=== PATIENT | female | born 1945 | race Caucasian/White ===

== ENCOUNTER 2017-02-13 21:41 | Emergency (ER) | payer MEDICARE, BC ==
[2017-02-13 22:15] VITALS: BP 112/56
[2017-02-13] MEDS ORDERED: Albuterol/Ipratropium 3.0-0.5 MG/3 ML Neb Soln NEB ONE (22:31)
[2017-02-13] MEDS ORDERED: Sodium Chloride 0.9% 1,000 ML IV SCH (22:45)
[2017-02-13] MEDS ORDERED: Albuterol 0.083% 2.5 MG/3 ML Neb Soln NEB ONE (23:29)
[2017-02-14] MEDS ORDERED: methylPREDNISolone Sodium Succinate 125 MG/2 ML SDV IM ONE (00:08)
--- NOTE | 2017-02-14 00:29 | EDM.PDOC ---
ED HPI GENERAL MEDICAL PROBLEM - General Chief Complaint: Respiratory Problem Stated Complaint: TROUBLE BREATHING Time Seen by Provider: 02/13/17 22:24 Source of Information: Reports: Patient History Limitations: Reports: No Limitations - History of Present Illness INITIAL COMMENTS - FREE TEXT/NARRATIVE: History of present illness: [71-year-old female presenting with cough and shortness of breath. She has had subjective fever but is not sure that she's had a fever. She quit smoking about a month ago and was a heavy smoker. She has a long complicated history including bilateral breast cancer with bilateral mastectomies. She is also gastric bypass patient. She is from [place] but in the summertime she stays in [place]. She does have a nebulization machine in [place] that she didn' t take with her here. She does have an handheld inhaler that she's been using but it has not relieved her shortness of breath.] Review of systems: As per history of present illness and below otherwise all systems reviewed and negative. Past medical history: As per history of present illness and as reviewed below otherwise noncontributory. Surgical history: As per history of present illness and as reviewed below otherwise noncontributory. Social history: No reported history of drug or alcohol abuse. Family history: As per history of present illness and as reviewed below otherwise noncontributory. Physical exam: HEENT: Atraumatic, normocephalic, pupils reactive, negative for conjunctival pallor or scleral icterus, mucous membranes moist, throat clear, neck supple, nontender, trachea midline. Lungs: Diffuse expiratory wheezing throughout but cleared with DuoNeb and albuterol treatment. Heart: S1S2, regular, negative for clicks, rubs, or JVD. Abdomen: Soft, nondistended, nontender. Negative for masses or hepatosplenomegaly. Negative for costovertebral tenderness. Pelvis: Stable nontender. Genitourinary: Deferred. Rectal: Deferred. Extremities: Atraumatic, negative for cords or calf pain. Neurovascular unremarkable. Neuro: Awake, alert, oriented. Cranial nerves II through XII unremarkable. Cerebellum unremarkable. Motor and sensory unremarkable throughout. Exam nonfocal. Diagnostics: [CBC complete metabolic panel chest x-ray were done along with rapid strep and influenza a and B.] Therapeutics: [Patient received DuoNeb and albuterol IV fluids and Solu-Medrol and improved with these treatments.] Impression: [Bronchitis] Plan: [She is provided with Zithromax and a tapering dose of prednisone. She is also to get her nebulization machine from [place] and use that while she is staying in [place]. Follow-up in the clinic or ER if not improving] Definitive disposition and diagnosis as appropriate pending reevaluation and review of above. - Related Data Allergies Allergy/AdvReac Type Severity Reaction Status Date / Time No Known Allergies Allergy Verified 02/13/17 22:52 Home Meds: Home Meds Aspirin [Halfprin] 81 mg PO DAILY 04/26/16 [History] Calcium Citrate/Vitamin D3 [Calcium Citrate + D] 1 each PO DAILY 04/26/16 [ History] Cholecalciferol (Vitamin D3) [D-2000] 2,000 unit PO DAILY 04/26/16 [History] Cyanocobalamin/Folic Acid [B-12 1,000 Mcg Sub Tablet] 1,000 mcg SL DAILY [History] Ferrous Sulfate 325 mg PO BID 04/26/16 [History] LORazepam [LORazepam] 1 mg PO DAILY 04/26/16 [History] Letrozole [Letrozole] 2.5 mg PO DAILY 04/26/16 [History] Magnesium Oxide [Magnesium] 500 mg PO DAILY 04/26/16 [History] PARoxetine HCl [Paroxetine HCl] 30 mg PO DAILY 04/26/16 [History] rOPINIRole HCl [Ropinirole HCl] 2 mg PO BEDTIME 04/26/16 [History] Albuterol [Ventolin HFA] 2 puff INH Q6H PRN 02/13/17 [History] Multivitamin [Multi-Vitamin Daily] 1 tab PO DAILY 02/13/17 [History] Past Medical History HEENT History: Reports: Allergic Rhinitis Cardiovascular History: Reports: High Cholesterol Respiratory History: Reports: Bronchitis, Recurrent 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: Reports: Polycystic Ovaries, Neurological History: Reports: Concussion, Other (See Below) Other Neuro History: cataplexy narcolepsy Psychiatric History: Reports: Anxiety Endocrine/Metabolic History: Reports: Diabetes, Type II, Other (See Below) Other Endocrine/Metabolic History: graves disease Hematologic History: Reports: Anemia Oncologic (Cancer) History: Reports: Breast - Past Surgical History HEENT Surgical History: Reports: Cataract Surgery GI Surgical History: Reports: Appendectomy, Bariatric Procedure Female Surgical History: Reports: Mastectomy Musculoskeletal Surgical History: Reports: Knee Replacement, Other (See Below) Other Musculoskeletal Surgeries/Procedures:: 2 knee repalcements Oncologic Surgical History: Reports: Mastectomy Social & Family History - Tobacco Use Smoking Status *Q: Never Smoker Packs/Tins Daily: 0.5 - Caffeine Use Caffeine Use: Reports: Coffee - Recreational Drug Use Recreational Drug Use: No ED ROS GENERAL - Review of Systems Review Of Systems: ROS reveals no pertinent complaints other than HPI. ED EXAM, GENERAL - Physical Exam Exam: See Below Course - Vital Signs Last Recorded V/S: Last Vital Signs Temp 37 C 02/13/17 22:13 Pulse 79 02/13/17 22:13 Resp 20 02/13/17 22:13 BP 112/56 L 02/13/17 22:13 Pulse Ox 91 L 02/13/17 23:48 - Orders/Labs/Meds Orders: Active Orders 24 hr Category Date Time Status RT Aerosol Therapy [RC] ASDIRECTED Care 02/13/17 22:31 Active RT Aerosol Therapy [RC] ASDIRECTED Care 02/13/17 23:29 Active Chest 2V [CR] Stat Exams 02/13/17 22:29 Taken CULTURE RESPIRATORY + SMEAR [] Stat Lab 02/13/17 23:50 Received CULTURE STREP A CONFIRMATION [RM] Stat Lab 02/13/17 22:54 Results STREP SCRN A RAPID W CULT CONF [RM] Stat Lab 02/13/17 22:54 Results UA W/MICROSCOPIC [URIN] Stat Lab 02/13/17 22:29 Uncollected Heparin Sodium [Heparin Lock Flush 100 Units/ML] Med 02/14/17 00:24 Ordered 500 units FLUSH ASDIRECTED PRN Sodium Chloride 0.9% [Normal Saline] 1,000 ml Med 02/13/17 22:45 Active IV ASDIRECTED Medication Orders Heparin Sodium (Porcine) (Heparin Lock Flush 100 Units/Ml) 500 units FLUSH ASDIRECTED PRN PRN Reason: IV Use Sodium Chloride (Normal Saline) 1,000 mls @ 300 mls/hr IV ASDIRECTED MIRZA Last Admin: 02/13/17 23:42 Dose: 300 mls/hr Labs: Laboratory Tests 02/13/17 02/13/17 02/13/17 Range/Units 22:29 22:29 22:30 WBC 9.2 (4.5-11.0) K/uL RBC 4.15 (3.30-5.50) M/uL Hgb 12.2 (12.0-15.0) g/dL Hct 37.7 (36.0-48.0) % MCV 91 (80-98) fL MCH 29 (27-31) pg MCHC 32 (32-36) % Plt Count 161 (150-400) K/uL Neut % (Auto) 77 H (36-66) % Lymph % (Auto) 12 L (24-44) % [place] % (Auto) 11 H (2-6) % Eos % (Auto) 1 L (2-4) % Baso % (Auto) 0 (0-1) % Sodium 140 (140-148) mmol/L Potassium 3.7 (3.6-5.2) mmol/L Chloride 105 (100-108) mmol/L Carbon Dioxide 27 (21-32) mmol/L Anion Gap 8.3 (5.0-14.0) mmol/L BUN 10 (7-18) mg/dL Creatinine 0.6 (0.6-1.0) mg/dL Est Cr Clr Drug Dosing TNP Estimated GFR (MDRD) > 60 (>60) Glucose 108 H (74-106) mg/dL Lactic Acid 0.8 (0.4-2.0) mmol/L Calcium 8.7 (8.5-10.1) mg/dL Total Bilirubin 0.5 (0.2-1.0) mg/dL AST 43 H (15-37) U/L ALT 32 (12-78) U/L Alkaline Phosphatase 128 H (46-116) U/L Total Protein 6.7 (6.4-8.2) g/dL Albumin 3.2 L (3.4-5.0) g/dL Globulin 3.5 (2.3-3.5) g/dL Albumin/Globulin Ratio 0.9 L (1.2-2.2) Meds: Medications Generic Name Dose Route Start Last Admin Trade Name Freq PRN Reason Stop Dose Admin Heparin Sodium (Porcine) 500 units 02/14/17 00:24 Heparin Lock Flush 100 Units/Ml FLUSH ASDIRECTED PRN IV Use Sodium Chloride 1,000 mls @ 300 mls/hr 02/13/17 22:45 02/13/17 23:42 Normal Saline IV 300 mls/hr ASDIRECTED MIRZA Administration Discontinued Medications Generic Name Dose Route Start Last Admin Trade Name Jeromy PRN Reason Stop Dose Admin Albuterol 2.5 mg 02/13/17 23:29 02/13/17 23:48 Proventil Neb Soln NEB 02/13/17 23:30 2.5 mg ONETIME ONE Administration Albuterol/Ipratropium 3 ml 02/13/17 22:31 02/13/17 23:02 Duoneb 3.0-0.5 Mg/3 Ml NEB 02/13/17 22:32 3 ml ONETIME ONE Administration Methylprednisolone Sodium Succinate 125 mg 02/14/17 00:08 02/14/17 00:17 Solu-Medrol IM 02/14/17 00:09 125 mg ONETIME ONE Administration Departure - Departure Time of Disposition: 00:31 Disposition: Home, Self-Care 01 Condition: Good Clinical Impression: Bronchitis, Acute asthma - Discharge Information Forms: ED Department Discharge Additional Instructions: Please remember to get your nebulization machine from [place] and use that while staying in [place] as needed. If you develop significant shortness of breath you have to return to the ER clinic for evaluation and treatment but hopefully with what we have done today that will not happen or be needed. - My Orders Last 24 Hours: My Active Orders 02/13/17 22:29 Chest 2V [CR] Stat UA W/MICROSCOPIC [URIN] Stat 02/13/17 22:31 RT Aerosol Therapy [RC] ASDIRECTED 02/13/17 22:45 Sodium Chloride 0.9% [Normal Saline] 1,000 ml IV ASDIRECTED 02/13/17 22:54 CULTURE STREP A CONFIRMATION [RM] Stat STREP SCRN A RAPID W CULT CONF [RM] Stat 02/13/17 23:29 RT Aerosol Therapy [RC] ASDIRECTED 02/13/17 23:50 CULTURE RESPIRATORY + SMEAR [RM] Stat 02/14/17 00:24 Heparin Sodium [Heparin Lock Flush 100 Units/ML] 500 units FLUSH ASDIRECTED PRN - Assessment/Plan Last 24 Hours: My Active Orders 02/13/17 22:29 Chest 2V [CR] Stat UA W/MICROSCOPIC [URIN] Stat 02/13/17 22:31 RT Aerosol Therapy [RC] ASDIRECTED 02/13/17 22:45 Sodium Chloride 0.9% [Normal Saline] 1,000 ml IV ASDIRECTED 02/13/17 22:54 CULTURE STREP A CONFIRMATION [] Stat STREP SCRN A RAPID W CULT CONF [RM] Stat 02/13/17 23:29 RT Aerosol Therapy [RC] ASDIRECTED 02/13/17 23:50 CULTURE RESPIRATORY + SMEAR [] Stat 02/14/17 00:24 Heparin Sodium [Heparin Lock Flush 100 Units/ML] 500 units FLUSH ASDIRECTED PRN
--- NOTE | 2017-02-16 08:20 | CR ---
Chest 2V HISTORY: cough COMPARISON: None FINDINGS: Lungs appear clear and normally aerated. Cardiomediastinal silhouette is within normal limits. No va scular redistribution or pleural fluid can be seen. Central venous Port-A-Cath is noted. The tip ove rlies the right atrium near the junction with the SVC. There is mild atherosclerotic calcification o f the aortic arch. Old postoperative changes right chest are noted. IMPRESSION: Old postoperative changes. No acute chest abnormality identified.
== END 2017-02-14 00:45 | disposition home or self-care (01) ==
LOC: JP.ED 21:41
DX: J40 Bronchitis, not specified as acute or chronic (principal); E78.00 Pure hypercholesterolemia, unspecified; F41.9 Anxiety disorder, unspecified; E11.9 Type 2 diabetes mellitus without complications; D64.9 Anemia, unspecified; Z96.659 Presence of unspecified artificial knee joint; Z98.890 Other specified postprocedural states; Z90.49 Acquired absence of other specified parts of digestive tract; Z79.82 Long term (current) use of aspirin; Z79.899 Other long term (current) drug therapy; Z98.84 Bariatric surgery status
CPT/HCPCS: 36415; 71020; 80053; 83605; 85025; 87070; 87077; 87081; 87205; 87430; 87804; 94640; 96360; 96361; 96372; 99285; C1751; J1642; J2930; J7040; J7620; 99284

== ENCOUNTER 2021-02-09 22:14 | Emergency (ER) | payer MEDICAID, MEDICARE, OTHER ==
[2021-02-09 22:37] VITALS: BP 105/59; PULSE 61
--- NOTE | 2021-02-09 23:00 | EDM.PDOC ---
ED HPI GENERAL MEDICAL PROBLEM - General Chief Complaint: Headache Stated Complaint: FELL FROM DECK/SEISURE Time Seen by Provider: 02/09/21 22:41 Source of Information: Reports: Patient, Family History Limitations: Reports: No Limitations - History of Present Illness INITIAL COMMENTS - FREE TEXT/NARRATIVE: Nina is a 75-year-old female presenting to the ED for evaluation of head injury that occurred earlier today when she fell off of her deck landing on her head hitting the stump. Patient has a history significant for narcolepsy with cataplexy and forgot to take her morning medications. Today she was out on her front deck trying to get her son's attention to shoot a rabbit in their garden when she had an episode of narcolepsy and went over the railing of the deck landing on her head and hitting a stump. When she has these episodes she has intact hearing and she heard the family come run over to check on her but she could not move or open her eyes. She initially felt fine when she regained consciousness but over the course of the evening started develop an increasing headache and some nausea prompting him to bring her in for evaluation. She denies any change of vision, funny taste in the mouth or funny smells, difficulty with swallowing or breathing, chest pain or back pain, and neck pain. She states that over the last 3 months her narcolepsy has become more significant to the point now where she is given up her car and driving. She has been on medication to control it, however, it appears to be less effective. She has not followed up with her neurologist concerning her narcolepsy and cataplexy. She does reside in a trailer on her son's property. Her son accompanies her to the ER today. headache Pain Score (Numeric/FACES): 6 - Related Data Allergies Allergy/AdvReac Type Severity Reaction Status Date / Time No Known Allergies Allergy Verified 02/09/21 22:49 Home Meds: Home Meds Aspirin [Halfprin] 81 mg PO DAILY 04/26/16 [History] Calcium Citrate/Vitamin D3 [Calcium Citrate + D] 1 each PO DAILY 04/26/16 [History] Cholecalciferol (Vitamin D3) [D-2000] 2,000 unit PO DAILY 04/26/16 [History] Cyanocobalamin/Folic Acid [B-12 1,000 Mcg Sub Tablet] 1,000 mcg SL DAILY 04/26/16 [History] Ferrous Sulfate 325 mg PO BID 04/26/16 [History] LORazepam 1 mg PO DAILY 04/26/16 [History] Letrozole 2.5 mg PO DAILY 04/26/16 [History] Magnesium Oxide [Magnesium] 500 mg PO DAILY 04/26/16 [History] PARoxetine HCl [Paroxetine HCl] 100 mg PO DAILY 04/26/16 [History] rOPINIRole HCl [Ropinirole HCl] 2 mg PO BEDTIME 04/26/16 [History] Albuterol [Ventolin HFA] 2 puff INH Q6H PRN 02/13/17 [History] Multivitamin [Multi-Vitamin Daily] 1 tab PO DAILY 02/13/17 [History] Past Medical History HEENT History: Reports: Allergic Rhinitis Cardiovascular History: Reports: High Cholesterol Respiratory History: Reports: Bronchitis, Recurrent 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 UP PERSON History: Reports: Polycystic Ovaries, Neurological History: Reports: Concussion, Other (See Below) Other Neuro History: cataplexy narcolepsy Psychiatric History: Reports: Anxiety Endocrine/Metabolic History: Reports: Diabetes, Type II, Other (See Below) Other Endocrine/Metabolic History: graves disease Hematologic History: Reports: Anemia Oncologic (Cancer) History: Reports: Breast - Past Surgical History HEENT Surgical History: Reports: Cataract Surgery GI Surgical History: Reports: Appendectomy, Bariatric Procedure Female Surgical History: Reports: Mastectomy Musculoskeletal Surgical History: Reports: Knee Replacement, Other (See Below) Other Musculoskeletal Surgeries/Procedures:: 2 knee repalcements Oncologic Surgical History: Reports: Mastectomy Social & Family History - Caffeine Use Caffeine Use: Reports: Coffee ED ROS GENERAL - Review of Systems Review Of Systems: See Below Constitutional: Reports: Other (Narcolepsy with cataplexy) HEENT: Reports: Other (Pain over the occiput of the head) Respiratory: Reports: No Symptoms Cardiovascular: Reports: No Symptoms Endocrine: Reports: No Symptoms GI/Abdominal: Reports: Nausea : Reports: No Symptoms Musculoskeletal: Reports: No Symptoms Skin: Reports: No Symptoms Neurological: Reports: Headache, Other (History of narcolepsy and cataplexy) Psychiatric: Reports: No Symptoms Hematologic/Lymphatic: Reports: No Symptoms Immunologic: Reports: No Symptoms ED EXAM, HEAD INJURY - Physical Exam Exam: See Below Exam Limited By: No Limitations General Appearance: Alert, No Apparent Distress Head: Normocephalic, Scalp Tenderness (Tenderness to palpation over the occiput) Nexus Criteria: No: Posterior, Midline Cervical Tenderness, Evidence of Intoxication, Altered Level of Consciousness, Focal Neurological Deficit, Painful Distraction Injuries Eyes: Bilateral Eye: EOMI, PERRL Throat/Mouth: Normal Inspection, Normal Lips, Normal Oropharynx, Normal Voice, No Airway Compromise Neck: Non-Tender, Full Range of Motion Respiratory: No Respiratory Distress, Lungs Clear, Normal Breath Sounds Cardiovascular: Normal Peripheral Pulses, Regular Rate, Rhythm, No Murmur GI/Abdominal Exam: Normal Bowel Sounds, Soft, Non-Tender Back Exam: Normal Inspection, Full Range of Motion Extremities: Normal Inspection, Normal Range of Motion, Normal Capillary Refill 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 As Tested, No Motor/Sensory Deficits, Alert, Normal Mood/Affect, Oriented x 3 - Gray Coma Score Best Eye Response (Gray): (4) Open Spontaneously Best Verbal Response (Gray): (5) Oriented Best Motor Response (Gray): (6) Obeys Commands Luzma Total: 15 Course - Vital Signs Last Recorded V/S: Last Vital Signs Temp 36.3 C 02/09/21 22:54 Pulse 61 02/09/21 22:54 Resp 16 02/09/21 22:54 BP 105/59 L 02/09/21 22:54 Pulse Ox 95 02/09/21 22:54 - Orders/Labs/Meds Labs: Laboratory Tests 02/09/21 02/09/21 Range/Units 23:00 23:00 WBC 8.2 (4.5-11.0) K/uL RBC 4.16 (3.30-5.50) M/uL Hgb 12.4 (12.0-15.0) g/dL Hct 37.3 (36.0-48.0) % MCV 90 (80-98) fL MCH 30 (27-31) pg MCHC 33 (32-36) % Plt Count 224 (150-400) K/uL Neut % (Auto) 70.0 H (36-66) % Lymph % (Auto) 17.5 L (24-44) % [place] % (Auto) 10.5 H (2-6) % Eos % (Auto) 1.8 L (2-4) % Baso % (Auto) 0.2 (0-1) % Sodium 144 (140-148) mmol/L Potassium 4.4 (3.6-5.2) mmol/L Chloride 108 (100-108) mmol/L Carbon Dioxide 26 (21-32) mmol/L Anion Gap 9.9 (5.0-14.0) mmol/L BUN 15 (7-18) mg/dL Creatinine 0.7 (0.6-1.0) mg/dL Est Cr Clr Drug Dosing 66.01 mL/min Estimated GFR (MDRD) > 60 (>60) Glucose 101 (74-106) mg/dL Calcium 8.8 (8.5-10.1) mg/dL Magnesium 1.8 (1.8-2.4) mg/dL Total Bilirubin 0.3 (0.2-1.0) mg/dL AST 27 (15-37) U/L ALT 49 (12-78) U/L Alkaline Phosphatase 175 H (46-116) U/L Total Protein 6.6 (6.4-8.2) g/dL Albumin 3.3 L (3.4-5.0) g/dL Globulin 3.3 (2.3-3.5) g/dL Albumin/Globulin Ratio 1.0 L (1.2-2.2) Meds: Medications Discontinued Medications Generic Name Dose Route Start Last Admin Trade Name Freq PRN Reason Stop Dose Admin Ketorolac Tromethamine 15 mg 02/10/21 00:02 02/10/21 00:19 Ketorolac 30 Mg/Ml Sdv IVPUSH 02/10/21 00:03 Not Given ONETIME ONE Ketorolac Tromethamine 15 mg 02/10/21 00:17 02/10/21 00:19 Ketorolac 30 Mg/Ml Sdv IM 02/10/21 00:18 15 mg ONETIME ONE Administration - Radiology Interpretation Free Text/Narrative:: I reviewed the images of the CT of the head without contrast as well as the r eport. There is no acute intracranial abnormalities. There is no hemorrhage, mass-effect or midline shift. The patient does have diffuse white matter changes consistent with microvascular disease. She also has generalized atrophy. There was 1 area demonstrating a calcified hemangioma. - Re-Assessments/Exams Free Text/Narrative Re-Assessment/Exam: 02/10/21 00:19 I reviewed the patient's labs and x-ray. There is no acute injury seen on the CT of the head without contrast. Patient was given Toradol 15 mg IM for her headache. She likely has a mild concussion from the fall. There were no significant electrolyte abnormalities. This is likely occurring because of the worsening narcolepsy with cataplexy. I encouraged her to follow-up with a neurologist for reevaluation and management of her medications. At this time I believe she is suitable for discharge home in satisfactory condition. Indications return to the ED were discussed. Departure - Departure Time of Disposition: 00:30 Disposition: Home, Self-Care 01 Clinical Impression: Narcolepsy with cataplexy, Head injury, closed, with brief LOC Concussion Qualifiers: Encounter type: initial encounter Loss of consciousness presence/duration: with LOC of unspecified duration Qualified Code(s): S06.0X9A - Concussion with loss of consciousness of unspecified duration, initial encounter - Discharge Information Instructions: Concussion, Adult, [id number] Referrals: PCP,None [Primary Care Provider] - Forms: ED Department Discharge Care Plan Goals: I would recommend following up with your neurologist to discuss why your narcolepsy with cataplexy is worsening over the last 3 months. You may need to have your medications adjusted to reduce the recurrence of this. Your work-up today shows that you have a mild concussion. There was no significant injury no carlos on your CAT scan and your laboratory results were unremarkable. Sepsis Event Note (ED) - Evaluation Sepsis Screening Result: No Definite Risk - Focused Exam Vital Signs: Vital Signs Temp Pulse Resp BP Pulse Ox 02/09/21 22:54 36.3 C 61 16 105/59 L 95 02/09/21 22:35 36.3 C 61 16 105/59 L 95 - Problem List & Annotations (1) Concussion SNOMED Code(s): 245739917 Code(s): S06.0X9A - CONCUSSION W LOSS OF CONSCIOUSNESS OF UNSP DURATION, INIT Status: Acute Priority: High Current Visit: Yes Qualifiers: Encounter type: initial encounter Loss of consciousness presence/duration: with LOC of unspecified duration Qualified Code(s): S06.0X9A - Concussion with loss of consciousness of unspecified duration, initial encounter (2) Head injury, closed, with brief LOC SNOMED Code(s): 76797205, 25513905 Code(s): S06.9X9A - UNSP INTRACRANIAL INJURY W LOC OF UNSP DURATION, INIT Status: Acute Priority: High Current Visit: Yes (3) Narcolepsy with cataplexy Status: Chronic Priority: High Current Visit: Yes - Problem List Review Problem List Initiated/Reviewed/Updated: Yes
[2021-02-10] MEDS ORDERED: Ketorolac 30 MG/ML SDV IVPUSH ONE (00:02)
--- NOTE | 2021-02-10 00:06 | CRLCT ---
For Patients: As a result of the Century Cures Act, medical imaging exams and procedure reports are released immediately into your electronic medical record. You may view this report before your referring provider. If you have questions, please contact your health care provider. INDICATION: Head injury. Nausea and headache. COMPARISON: None. TECHNIQUE: Noncontrast CT head. FINDINGS: [id number] generalized volume loss. Low-attenuation change within the white matter consistent with chronic small vessel ischemic changes. No acute intracranial hemorrhage, acute infarct, focal edema, mass effect, or fracture. No midline shift. No abnormal ventricular dilatation. 9 mm calcified mass adjacent to the lateral left cerebellum (series 2, image 12) may represent a calcified meningioma. Normal calvarium and skull base. Visualized paranasal sinuses mastoid air cells are clear. Normal orbits bilaterally. IMPRESSION: 1. No acute intracranial abnormality. 2. [id number] generalized volume loss. Chronic deep white matter small vessel ischemic changes. Please note that all CT scans at this facility use dose modulation, iterative reconstruction, and/or weight-based dosing when appropriate to reduce radiation dose to as low as reasonably achievable. Dictated by Walter Razo MD @ 02/10/2021 12:04:[address] Walter Razo @ Feb 10 2021 12:04AM
[2021-02-10] MEDS ORDERED: Ketorolac 30 MG/ML SDV IM ONE (00:17)
== END 2021-02-10 00:54 | disposition home or self-care (01) ==
LOC: JP.ED 22:14
DX: S06.0X9A Concussion with loss of consciousness of unspecified duration, initial encounter (principal); G47.411 Narcolepsy with cataplexy; E11.9 Type 2 diabetes mellitus without complications; Z79.82 Long term (current) use of aspirin; Z79.899 Other long term (current) drug therapy; W17.4XXA Fall from dock, initial encounter
CPT/HCPCS: 36415; 70450; 80053; 83735; 85025; 96372; 99284; J1885

== ENCOUNTER 2021-07-12 18:24 | Emergency (ER) | payer MEDICARE ==
[2021-07-12] MEDS ORDERED: LORazepam 2 MG/ML SDV IVPUSH ONE ×2 (18:34→19:41)
--- NOTE | 2021-07-12 18:41 | EDM.PDOC ---
ED HPI GENERAL MEDICAL PROBLEM - General Stated Complaint: CHEST PAIN Time Seen by Provider: 07/12/21 18:29 Source of Information: Reports: Patient, Family History Limitations: Reports: No Limitations - History of Present Illness INITIAL COMMENTS - FREE TEXT/NARRATIVE: Nina is a 75-year-old female presenting to the ED with her family for evaluation of chest pain with pleurodynia. The patient received news today that her son had and has a history significant for anxiety. Since receiving the news she has been experiencing increasing central chest pain including dull pain and a component of sharp pain and twinges that seemed to be related to respiratory effort. She denies any nausea or vomiting. She is very upset. She is a smoker consuming 0.5 to 1 packs/day. She has a history significant for diabetes type 2, hyperlipidemia, obstructive sleep apnea, obesity, breast cancer status post bilateral mastectomies, a previous bariatric surgery and adjustment disorder with depression. Her medications were reviewed. She was seen on 07/09/2021 by her primary provider for a cough. She has recently undergone a CT of the chest as well as labs including a CBC, comprehensive metabolic panel, tick panel, and COVID-19 all of which were negative. Chest Pain Score (Numeric/FACES): 5 - Related Data Allergies Allergy/AdvReac Type Severity Reaction Status Date / Time No Known Allergies Allergy Verified 07/12/21 18:41 Home Meds: Home Meds Aspirin [Halfprin] 81 mg PO DAILY 04/26/16 [History] Calcium Citrate/Vitamin D3 [Calcium Citrate + D] 1 each PO DAILY 04/26/16 [History] Cholecalciferol (Vitamin D3) [D2000] 2,000 unit PO DAILY 04/26/16 [History] Cyanocobalamin/Folic Acid [B-12 1,000 Mcg Sub Tablet] 500 mcg SL DAILY 04/26/16 [History] Ferrous Sulfate 325 mg PO BID 04/26/16 [History] LORazepam 1 mg PO BEDTIME 04/26/16 [History] Magnesium Oxide [Magnesium] 250 mg PO DAILY 04/26/16 [History] rOPINIRole HCl [Ropinirole HCl] 1 mg PO BEDTIME 04/26/16 [History] Albuterol [Ventolin HFA] 2 puff INH Q6H PRN 02/13/17 [History] Multivitamin [Multi-Vitamin Daily] 1 tab PO DAILY 02/13/17 [History] Acetaminophen [Non-Aspirin] 650 mg PO Q6H PRN 07/12/21 [History] Levothyroxine [Synthroid] 50 mcg PO DAILY 07/12/21 [History] Melatonin 12 mg PO BEDTIME 07/12/21 [History] Modafinil [Provigil] 200 mg PO DAILY 07/12/21 [History] Ondansetron [Zofran ODT] 4 mg PO Q8H PRN 07/12/21 [History] Sertraline [Zoloft] 100 mg PO DAILY 07/12/21 [History] Vitamin B Complex 1 cap PO DAILY 07/12/21 [History] Zinc Acetate [Galzin] 25 mg PO DAILY 07/12/21 [History] rOPINIRole [Requip] 0.5 mg PO DAILY 07/12/21 [History] Past Medical History HEENT History: Reports: Allergic Rhinitis Cardiovascular History: Reports: High Cholesterol Respiratory History: Reports: Bronchitis, Recurrent [employer] History: Reports: Polycystic Ovaries, Neurological History: Reports: Concussion, Other (See Below) Other Neuro History: cataplexy narcolepsy Psychiatric History: Reports: Anxiety Endocrine/Metabolic History: Reports: Diabetes, Type II, Other (See Below) Other Endocrine/Metabolic History: graves disease Hematologic History: Reports: Anemia Oncologic (Cancer) History: Reports: Breast - Infectious Disease History Infectious Disease History: Reports: Chicken Pox, Measles, Mumps, Shingles - Past Surgical History HEENT Surgical History: Reports: Cataract Surgery GI Surgical History: Reports: Appendectomy, Bariatric Procedure Female Surgical History: Reports: Mastectomy Musculoskeletal Surgical History: Reports: Knee Replacement, Other (See Below) Other Musculoskeletal Surgeries/Procedures:: 2 knee repalcements Oncologic Surgical History: Reports: Mastectomy Social & Family History - Caffeine Use Caffeine Use: Reports: Coffee ED ROS GENERAL - Review of Systems Review Of Systems: See Below Constitutional: Reports: No Symptoms HEENT: Reports: No Symptoms Respiratory: Reports: Shortness of Breath, Pleuritic Chest Pain, Other (Bilateral mastectomies) Cardiovascular: Reports: Chest Pain Endocrine: Reports: No Symptoms GI/Abdominal: Reports: No Symptoms : Reports: No Symptoms Musculoskeletal: Reports: Back Pain (Chronic back pain) ED EXAM, GENERAL - Physical Exam Exam: See Below Exam Limited By: No Limitations General Appearance: Alert, Anxious, Moderate Distress Eye Exam: Bilateral Eye: EOMI, PERRL Throat/Mouth: Normal Inspection, Normal Oropharynx, Normal Voice, No Airway Compromise Head: Atraumatic, Normocephalic Neck: Normal Inspection, Supple. No: Lymphadenopathy (R), Lymphadenopathy (L) Respiratory/Chest: Wheezing (Inspiratory and expiratory wheezes), Splinting (Painful respirations), Other (Tenderness with palpation along the sternum) Cardiovascular: Normal Peripheral Pulses, Regular Rate, Rhythm, No Murmur, Extra Beats (Frequent extrasystoles) Peripheral Pulses: 2+: Radial (L), Radial (R), Posterior Tibial (L), Posterior Tibial (R) GI/Abdominal: Normal Bowel Sounds, Soft, Non-Tender Extremities: Normal Inspection, Normal Range of Motion, No Pedal Edema Neurological: Alert, Oriented Psychiatric: Anxious (Extremely anxious), Tearful Skin Exam: Warm, Dry, Intact, Normal Color, No Rash #1 Interpretation EKG Date: 07/12/21 Time: 19:25 Rhythm: NSR (Normal sinus rhythm with frequent premature atrial contractions) Rate (Beats/Min): 82 P-Wave: Present QRS: RBBB QT: Prolonged Comparison: NA - No Prior EKG Course - Vital Signs Last Recorded V/S: Last Vital Signs Temp 36.6 C 07/12/21 18:39 Pulse 74 07/12/21 18:39 Resp 24 H 07/12/21 18:39 BP 124/70 07/12/21 18:39 Pulse Ox 94 L 07/12/21 18:39 - Orders/Labs/Meds Orders: Active Orders 24 hr Category Date Time Status Chest 1V Frontal [CR] Stat Exams 07/12/21 18:28 Taken Iopamidol [Isovue-370 (76%)] Med 07/12/21 19:45 Active 100 ml IV . DIRECTED Sodium Chloride 0.9% [Normal Saline] 100 ml Med 07/12/21 19:45 Active IV ASDIRECTED Sodium Chloride 0.9% [Saline Flush] Med 07/12/21 18:29 Active 10 ml FLUSH ASDIRECTED PRN Isolation [COMM] Stat Oth 07/12/21 18:28 Ordered Saline Lock Insert [OM.PC] Routine Oth 07/12/21 18:29 Ordered EKG 12 Lead [EK] Routine Ther 07/12/21 18:28 Ordered Medication Orders Sodium Chloride (Normal Saline) 100 mls @ 3 mls/sec IV ASDIRECTED MIRZA Last Admin: 07/12/21 20:34 Dose: 3 mls/sec Documented by: JULEE Iopamidol (Iopamidol 755 Mg/Ml 100 Ml Bottle) 100 ml IV . DIRECTED MIRZA Last Admin: 07/12/21 20:34 Dose: 100 ml Documented by: JULEE Sodium Chloride (Sodium Chloride 0.9% 10 Ml Syringe) 10 ml FLUSH ASDIRECTED PRN PRN Reason: Keep Vein Open Last Admin: 07/12/21 20:00 Dose: 10 ml Documented by: Admin: 07/12/21 18:51 Dose: 10 ml Documented by: STEPHANIE Labs: Laboratory Tests 07/12/21 07/12/21 07/12/21 Range/Units 18:39 18:39 18:39 WBC 9.8 (4.5-11.0) K/uL RBC 4.44 (3.30-5.50) M/uL Hgb 12.7 (12.0-15.0) g/dL Hct 39.2 (36.0-48.0) % MCV 88 (80-98) fL MCH 29 (27-31) pg MCHC 32 (32-36) % Plt Count 239 (150-400) K/uL Neut % (Auto) 72.0 H (36-66) % Lymph % (Auto) 18.5 L (24-44) % [place] % (Auto) 8.3 H (2-6) % Eos % (Auto) 1.1 L (2-4) % Baso % (Auto) 0.1 (0-1) % D-Dimer, Quantitative 1085.20 H (0.0-500.0) ng/mL Sodium 143 (140-148) mmol/L Potassium 4.1 (3.6-5.2) mmol/L Chloride 110 H (100-108) mmol/L Carbon Dioxide 25 (21-32) mmol/L Anion Gap 12.1 (5.0-14.0) mmol/L BUN 19 H (7-18) mg/dL Creatinine 0.6 (0.6-1.0) mg/dL Est Cr Clr Drug Dosing 77.01 mL/min Estimated GFR (MDRD) > 60 (>60) Glucose 92 (74-106) mg/dL Calcium 8.8 (8.5-10.1) mg/dL Total Bilirubin 0.3 (0.2-1.0) mg/dL AST 29 (15-37) U/L ALT 50 (12-78) U/L Alkaline Phosphatase 208 H (46-116) U/L Troponin I < 0.017 (0.000-0.056) ng/mL C-Reactive Protein 0.14 (0.0-0.3) mg/dL NT-Pro-B Natriuret Pep 201 H (5-125) pg/mL Total Protein 6.9 (6.4-8.2) g/dL Albumin 3.5 (3.4-5.0) g/dL Globulin 3.4 (2.3-3.5) g/dL Albumin/Globulin Ratio 1.0 L (1.2-2.2) Influenza Type A RNA (NEGATIVE) RSV RNA (INAAT) (NEGATIVE) Influenza Type B RNA (NEGATIVE) SARS-CoV-2 RNA (TACOS) (NEGATIVE) 07/12/21 Range/Units 18:45 WBC (4.5-11.0) K/uL RBC (3.30-5.50) M/uL Hgb (12.0-15.0) g/dL Hct (36.0-48.0) % MCV (80-98) fL MCH (27-31) pg MCHC (32-36) % Plt Count (150-400) K/uL Neut % (Auto) (36-66) % Lymph % (Auto) (24-44) % [place] % (Auto) (2-6) % Eos % (Auto) (2-4) % Baso % (Auto) (0-1) % D-Dimer, Quantitative (0.0-500.0) ng/mL Sodium (140-148) mmol/L Potassium (3.6-5.2) mmol/L Chloride (100-108) mmol/L Carbon Dioxide (21-32) mmol/L Anion Gap (5.0-14.0) mmol/L BUN (7-18) mg/dL Creatinine (0.6-1.0) mg/dL Est Cr Clr Drug Dosing mL/min Estimated GFR (MDRD) (>60) Glucose (74-106) mg/dL Calcium (8.5-10.1) mg/dL Total Bilirubin (0.2-1.0) mg/dL AST (15-37) U/L ALT (12-78) U/L Alkaline Phosphatase (46-116) U/L Troponin I (0.000-0.056) ng/mL C-Reactive Protein (0.0-0.3) mg/dL NT-Pro-B Natriuret Pep (5-125) pg/mL Total Protein (6.4-8.2) g/dL Albumin (3.4-5.0) g/dL Globulin (2.3-3.5) g/dL Albumin/Globulin Ratio (1.2-2.2) Influenza Type A RNA Negative (NEGATIVE) RSV RNA (INAAT) Negative (NEGATIVE) Influenza Type B RNA Negative (NEGATIVE) SARS-CoV-2 RNA (TACOS) Negative (NEGATIVE) Meds: Medications Generic Name Dose Route Start Last Admin Trade Name Jeromy PRN Reason Stop Dose Admin Sodium Chloride 100 mls @ 3 mls/sec 07/12/21 19:45 07/12/21 20:34 Normal Saline IV 3 mls/sec ASDIRECTED MIRZA Administration Iopamidol 100 ml 07/12/21 19:45 07/12/21 20:34 Iopamidol 755 Mg/Ml 100 Ml Bottle IV 100 ml . DIRECTED MIRZA Administration Sodium Chloride 10 ml 07/12/21 18:29 07/12/21 20:00 Sodium Chloride 0.9% 10 Ml Syringe FLUSH 10 ml ASDIRECTED PRN Administration Keep Vein Open Discontinued Medications Generic Name Dose Route Start Last Admin Trade Name Jeromy PRN Reason Stop Dose Admin Hydromorphone HCl 0.5 mg 07/12/21 19:42 07/12/21 20:00 Hydromorphone 0.5 Mg/0.5 Ml Syringe IVPUSH 07/12/21 19:43 0.5 mg ONETIME ONE Administration Lorazepam 0.5 mg 07/12/21 18:34 07/12/21 18:49 Lorazepam 2 Mg/Ml Sdv IVPUSH 07/12/21 18:35 0.5 mg ONETIME ONE Administration Lorazepam 0.5 mg 07/12/21 19:41 07/12/21 20:00 Lorazepam 2 Mg/Ml Sdv IVPUSH 07/12/21 19:42 0.5 mg ONETIME ONE Administration Sucralfate 1 gm 07/12/21 20:59 Sucralfate 1 Gm Tab PO 07/12/21 21:00 ONETIME ONE - Radiology Interpretation Free Text/Narrative:: I reviewed the one-view portable chest x-ray on Nina showing a consolidation in the right upper lobe that is atypical for infection. The patient has a markedly elevated D-dimer so we will get a CT angio of the chest to better define the lung anatomy and circulation. I reviewed the CT angio of the chest images as well as the report. The report is as follows: FINDINGS: Heart and vasculature: Contrast opacification of the pulmonary arterial tree is adequate. No sign of pulmonary embolism. Heart size is normal. Thoracic aorta and pulmonary artery are normal in caliber. Lungs and pleural: Stable scarring in the right middle and upper lobes. The lungs are otherwise clear. No pleural effusions, pleural thickening, or pneumothorax. Lymph nodes/mediastinum: No mediastinal, hilar, or axillary adenopathy. Enlarged right thyroid lobe with calcifications, likely calcified nodules. Chest wall: Changes of bilateral mastectomy. Right axillary clips from prior domingo dissection. Upper abdomen: No acute or significant findings. Changes of Kinsg-en-Y gastric bypass. Bones: Multilevel degenerative changes. No aggressive appearing lytic or blastic lesions. IMPRESSION: 1. No pulmonary embolism. 2. Clear lungs. Please note that all CT scans at this facility use dose modulation, iterative reconstruction, and/or weight-based dosing when appropriate to reduce radiation dose to as low as reasonably achievable. Dictated by Jesus Galaviz MD @ 07/12/2021 9:11:09 PM - Re-Assessments/Exams Free Text/Narrative Re-Assessment/Exam: 07/12/21 21:47 I reviewed the patient's labs showing a CBC with a leukocyte count of 9.8, hemoglobin of 12.7, hematocrit of 39.2 and a platelet count of 239,000. The patient's comprehensive metabolic panel is unremarkable with the exception of an alkaline phosphatase of 208. The sodium was 143, potassium 4.1, chloride 110, bicarbonate 25, BUN of 19 with a creatinine of 0.6 and a glucose of 92. AST and ALT were both normal. Troponin was normal at less than 0.017. D- dimer was elevated at 1085. Because of this we proceeded with a CT angiogram of the chest. The patient's swab for Covid, RSV, and influenza was negative. The CT angio of the chest failed to demonstrate any sign of infiltrate as was seen on the 1 view chest x-ray, nor did it demonstrate any acute thrombus or emboli in the pulmonary vascular tree. Patient did have chest wall changes secondary to bilateral mastectomies and right axillary clips from prior domingo dissection. With the lack of findings, this is most likely a stress reaction to the pat lynsey's recent news causing increased gastric acid aggravating her hiatal hernia and causing esophageal spasm. We will put the patient on Carafate 1 g p.o. 4 times a day for the next 2 to 3 weeks which should help reduce this. I did review with the patient the results of her work-up and at this time she is suitable for discharge home in satisfactory condition. Departure - Departure Time of Disposition: 21:40 Disposition: Home, Self-Care 01 Clinical Impression: Hiatal hernia, Stress reaction causing mixed disturbance of emotion and conduct, History of Kings-en-Y gastric bypass, Anxiety as acute reaction to exceptional stress GERD with esophagitis Qualifiers: Esophagitis bleeding: without hemorrhage Qualified Code(s): K21.00 - Gastro- esophageal reflux disease with esophagitis, without bleeding Instructions: Gastroesophageal Reflux Disease, Adult, [id number], Supporting Someone With Anxiety, Managing Anxiety, Adult Referrals: Krysten Rogers PA-C [Primary Care Provider] - Care Plan Goals: Your work-up today shows that your chest pain is a mix of some musculoskeletal pain which can be managed with Tylenol and a stress reaction to grieving causing increased acid production in your stomach and irritation of your hiatal hernia and esophagus. I am going to send you home with a prescription for Carafate which she may take 15 minutes before each meal and at bedtime. This helps absorb the acid in your stomach so that you do not have the reflux symptoms. You may need to take this up to 2 to 3 weeks. I am sorry for your recent news and your loss. If we can be of further service, do not hesitate to seek us out. Sepsis Event Note (ED) - Focused Exam Vital Signs: Vital Signs Temp Pulse Resp BP Pulse Ox 07/12/21 18:39 36.6 C 74 24 H 124/70 94 L - Problem List & Annotations (1) Anxiety as acute reaction to exceptional stress SNOMED Code(s): 47085832 Code(s): F41.1 - GENERALIZED ANXIETY DISORDER; F43.0 - ACUTE STRESS REACTION Status: Acute Priority: High Current Visit: Yes (2) GERD with esophagitis SNOMED Code(s): 499055151 Code(s): K21.00 - GASTRO-ESOPHAGEAL REFLUX DIS WITH ESOPHAGITIS, WITHOUT BLEED Status: Acute Priority: High Current Visit: Yes Qualifiers: Esophagitis bleeding: without hemorrhage Qualified Code(s): K21.00 - Gastr o-esophageal reflux disease with esophagitis, without bleeding (3) Hiatal hernia SNOMED Code(s): 82336793 Code(s): K44.9 - DIAPHRAGMATIC HERNIA WITHOUT OBSTRUCTION OR GANGRENE Status: Chronic Priority: High Current Visit: Yes (4) History of Kings-en-Y gastric bypass SNOMED Code(s): 840163021 Code(s): Z98.84 - BARIATRIC SURGERY STATUS Status: Chronic Priority: High Current Visit: Yes (5) Stress reaction causing mixed disturbance of emotion and conduct SNOMED Code(s): 445117053 Code(s): F43.0 - ACUTE STRESS REACTION Status: Acute Priority: High Current Visit: Yes - Problem List Review Problem List Initiated/Reviewed/Updated: Yes - My Orders Last 24 Hours: My Active Orders 07/12/21 18:28 Chest 1V Frontal [CR] Stat Isolation [COMM] Stat EKG 12 Lead [EK] Routine 07/12/21 18:29 Sodium Chloride 0.9% [Saline Flush] 10 ml FLUSH ASDIRECTED PRN Saline Lock Insert [OM.PC] Routine 07/12/21 19:45 Iopamidol [Isovue-370 (76%)] 100 ml IV . DIRECTED Sodium Chloride 0.9% [Normal Saline] 100 ml IV ASDIRECTED - Assessment/Plan Last 24 Hours: My Active Orders 07/12/21 18:28 Chest 1V Frontal [CR] Stat Isolation [COMM] Stat EKG 12 Lead [EK] Routine 07/12/21 18:29 Sodium Chloride 0.9% [Saline Flush] 10 ml FLUSH ASDIRECTED PRN Saline Lock Insert [OM.PC] Routine 07/12/21 19:45 Iopamidol [Isovue-370 (76%)] 100 ml IV . DIRECTED Sodium Chloride 0.9% [Normal Saline] 100 ml IV ASDIRECTED
[2021-07-12] MEDS: Sodium Chloride 0.9% 10 ML Syringe FLUSH PRN ×2 (18:51→20:00)
[2021-07-12 19:34] LABS: CORONAVIRUS COVID-19 NAA NEGATIVE (NEGATIVE)
[2021-07-12] MEDS ORDERED: HYDROmorphone 0.5 MG/0.5 ML Syringe IVPUSH ONE (19:42)
[2021-07-12] MEDS ORDERED: Sodium Chloride 0.9% 100 ML IV SCH (19:45)
[2021-07-12] MEDS ORDERED: Iopamidol 755 Mg/ML 100 ML Bottle IV SCH (19:45)
[2021-07-12] MEDS ORDERED: Sucralfate 1 GM Tab PO ONE (20:59)
--- NOTE | 2021-07-12 21:12 | CRLCT ---
For Patients: As a result of the Century Cures Act, medical imaging exams and procedure reports are released immediately into your electronic medical record. You may view this report before your referring provider. If you have questions, please contact your health care provider. INDICATION: Chest pain, elevated D-dimer. TECHNIQUE: CT chest PE was acquired with 100 cc Isovue 370 IV contrast. COMPARISON: CT chest without contrast from 07/08/2021. FINDINGS: Heart and vasculature: Contrast opacification of the pulmonary arterial tree is adequate. No sign of pulmonary embolism. Heart size is normal. Thoracic aorta and pulmonary artery are normal in caliber. Lungs and pleural: Stable scarring in the right middle and upper lobes. The lungs are otherwise clear. No pleural effusions, pleural thickening, or pneumothorax. Lymph nodes/mediastinum: No mediastinal, hilar, or axillary adenopathy. Enlarged right thyroid lobe with calcifications, likely calcified nodules. Chest wall: Changes of bilateral mastectomy. Right axillary clips from prior domingo dissection. Upper abdomen: No acute or significant findings. Changes of Kings-en-Y gastric bypass. Bones: Multilevel degenerative changes. No aggressive appearing lytic or blastic lesions. IMPRESSION: 1. No pulmonary embolism. 2. Clear lungs. Please note that all CT scans at this facility use dose modulation, iterative reconstruction, and/or weight-based dosing when appropriate to reduce radiation dose to as low as reasonably achievable. Dictated by Jesus Galaviz MD @ 07/12/2021 9:11:09 PM (Electronically Signed)
[2021-07-12 22:25] VITALS: BP 112/56; PULSE 71
--- NOTE | 2021-07-13 02:59 | CRLCR ---
For Patients: As a result of the Cures Act, medical imaging exams and procedure reports are released immediately into your electronic medical record. You may view this report before your referring provider. If you have questions, please contact your health care provider. HISTORY: Chest pain. COMPARISON: CT of the chest from 07/08/2021 and plain film of the chest from 06/07/2021. FINDINGS: A portable erect AP view of the chest was obtained at 18 50 hours. There is calcification in the lateral right mid-upper chest, corresponding to the calcification of the right 3rd costal cartilage seen on the recent CT of the chest. Again seen is moderate eventration of the right hemidiaphragm. There is stable mild linear scarring in the left lateral lung base. The lungs are otherwise clear despite shallow inspiration. The heart has increased in size and is now mildly enlarged. This is partially the result of shallow inspiration. The mediastinum is otherwise normal in appearance. The osseous structures are normal in appearance for the patient`s age. IMPRESSION: No active disease seen in the chest. New mild cardiomegaly, at least partially the result of shallow inspiration. Dictated by Daniel Frazier MD @ 07/13/2021 2:57:38 AM (Electronically Signed)
== END 2021-07-12 22:22 | disposition home or self-care (01) ==
LOC: JP.ED 18:24
DX: K21.00 Gastro-esophageal reflux disease with esophagitis, without bleeding (principal); K44.9 Diaphragmatic hernia without obstruction or gangrene; F43.9 Reaction to severe stress, unspecified; F41.1 Generalized anxiety disorder; F91.9 Conduct disorder, unspecified; E78.00 Pure hypercholesterolemia, unspecified; E11.9 Type 2 diabetes mellitus without complications; Z79.82 Long term (current) use of aspirin; Z79.899 Other long term (current) drug therapy; Z20.822 Contact with and (suspected) exposure to COVID-19; Z98.84 Bariatric surgery status
CPT/HCPCS: 0241U; 36415; 71045; 71275; 80053; 83880; 84484; 85025; 85379; 86140; 93005; 96374; 96375; 96376; 99285; A9270; J1170; J2060; Q9967